=== PATIENT | male | born 1995 | race Caucasian/White ===

== ENCOUNTER 2023-10-10 12:50 | Emergency (ER) | payer OTHER ==
[~2023-10-10] VITALS: Ht 180.3 cm; Wt 78.6 kg
[2023-10-10 16:34] VITALS: BP 130/76; TEMP 98.2; O2SAT 99
[2023-10-10 16:49] LABS: CHLAMYDIA DNA AMPLIFICATION NEGATIVE (NEGATIVE); GC DNA AMPLIFICATION NEGATIVE (NEGATIVE)
== END 2023-10-10 16:37 | disposition home or self-care (01) ==
LOC: M ED 12:50
DX: N43.3 Hydrocele, unspecified (principal)

== ENCOUNTER → 2023-11-08 | Outpatient (CLI) | payer OTHER ==
[2023-11-08 14:38] LABS: PSA SCREENING 0.5 NG/ML (< 4.00)
== END ==
LOC: M PLALAB 11:30
PROVIDERS: ATTEND Physician Assistant
DX: N49.2 Inflammatory disorders of scrotum (principal)
CPT/HCPCS: 36415; 82105; 83615; 84702; G0103

== ENCOUNTER 2024-08-20 18:00 | Emergency (ER) | payer OTHER ==
[~2024-08-20] VITALS: Ht 180.3 cm; Wt 72.4 kg
[2024-08-20] MEDS ORDERED: K 10100T PO (18:14)
[2024-08-20] MEDS ORDERED: THEA200C PO (18:14)
[2024-08-20] MEDS ORDERED: THERTAB52 PO (18:14)
[2024-08-20] MEDS ORDERED: ASHW300T2 PO (18:14)
[2024-08-20] MEDS ORDERED: VITAD400CA PO (18:14)
[2024-08-20 18:48] LABS: HEMATOCRIT 50.7 % (42.0-52.0); HEMOGLOBIN 17.5 g/dl (13.5-17.5); MEAN CORPUSCULAR HEMOGLOBIN 28.7 pg (27.0-33.0); MEAN CORPUSCULAR HGB CONC 34.5 g/dl (32.0-36.5); MEAN CORPUSCULAR VOLUME 83.1 fl (80.0-96.0); PLATELET COUNT, AUTOMATED 274 10^3/uL (150-450); WHITE BLOOD COUNT 16.2 10^3/uL (4.0-10.0)
[2024-08-20 19:10] LABS: LIPASE 27 U/L (12-53)
[2024-08-20 19:12] LABS: ALBUMIN 4.5 G/DL (3.2-5.2); ALKALINE PHOSPHATASE 97 U/L (46-116); ALT/SGPT 28 U/L (7.0-40); AST/SGOT 12 U/L (<34); BILIRUBIN,DIRECT 0.5 MG/DL (<0.4); BILIRUBIN,TOTAL 1.5 MG/DL (0.3-1.2); BLOOD UREA NITROGEN 20 MG/DL (9-23); CALCIUM LEVEL 10.4 MG/DL (8.5-10.1); CARBON DIOXIDE LEVEL 24 MMOL/L (20-31); CHLORIDE LEVEL 108 MMOL/L (98-107); CREATININE FOR GFR 1.02 MG/DL (0.70-1.30); GLOMERULAR FILTRATION RATE > 60.0 (>60); GLUCOSE, FASTING 96 MG/DL (60-100); POTASSIUM SERUM 4.5 MMOL/L (3.5-5.1); SODIUM LEVEL 139 MMOL/L (136-145); TOTAL PROTEIN 7.5 G/DL (5.7-8.2)
[2024-08-20 19:23] LABS: RSV AMPLIFICATION NEGATIVE (NEGATIVE)
[2024-08-20 19:51] LABS: BASO % 0.2 % (0.0-1.0); EOS % 0.1 % (0.0-3.0); LYMPH # 0.3 10^3/uL (1.5-5.0); LYMPH % 1.6 % (24.0-44.0); MONO # 0.6 10^3/uL (0.0-0.8); MONO % 3.9 % (2.0-8.0); NEUTROPHILS # 15.4 10^3/uL (1.5-8.5); NEUTROPHILS % 93.8 % (36.0-66.0)
[2024-08-20 19:54] LABS: PLATELET ESTIMATE NORMAL (NORMAL)
[2024-08-20] MEDS: ONDANSETRON 4MG 2ML VIAL IV ONE (20:09)
[2024-08-20] MEDS: NS 1,000 ML IV ONE (20:09)
[2024-08-20] MEDS ORDERED: ONDA-282 PO (22:04)
[2024-08-20 22:06] VITALS: BP 109/53; TEMP 99.3; O2SAT 99
== END 2024-08-20 22:12 | disposition home or self-care (01) ==
LOC: M ED 18:00
DX: K52.9 Noninfective gastroenteritis and colitis, unspecified (principal)
CPT/HCPCS: 80048; 80076; 83690; 85027; 87631; 96361; 96374; 99284; J2405